=== PATIENT | female | born 1960 | race Caucasian/White ===

== ENCOUNTER 2019-03-04 23:32 | Emergency (ER) | payer OTHER, SELFPAY ==
[2019-03-04 23:43] VITALS: BP 148/89; PULSE 66; RESP 15; TEMP 36.8; O2SAT 100; BMI 20.3
--- NOTE | 2019-03-04 23:48 | DI.RAD.S_ITS ---
PROCEDURE: XR CHEST 1V INDICATIONS: chest pain TECHNIQUE: One view of the chest was acquired. COMPARISON: [facility], CR, XR CHEST 1VW (PORTABLE), 09/04/2015, 0:32. FINDINGS: Surgical changes and devices: None. Lungs and pleura: Lungs are clear. No pleural effusions or pneumothorax. Mediastinum: Mediastinal contours appear normal. Heart size is normal. Bones and chest wall: No suspicious bony lesions. Overlying soft tissues appear unremarkable. IMPRESSION: No acute cardiopulmonary disease. Dictated by: Saba Escobedo M.D. on 03/05/2019 at 9:10 Approved by: Saba Escobedo M.D. on 03/05/2019 at 9:11
[2019-03-05] VITALS: BP 118/82; PULSE 69; RESP 21; O2SAT 100
--- NOTE | 2019-03-05 00:04 | ED.CHESTPAIN ---
HPI - Chest Pain General Chief Complaint: Chest Pain Stated Complaint: states chest, back and abdominal pain Time Seen by Provider: 03/05/19 00:04 Source: patient Mode of arrival: Ambulatory Limitations: no limitations History of Present Illness HPI narrative: This is a 58-year-old female comes to the emergency department with complaint of epigastric pain that is radiating bilaterally towards the back. Patient states it started when she had about 2 bites of food and then suddenly started to not feel well. The episodes sort of resolved improved and then at dinner about 8:00 p.m. she tried again and symptoms returned and were progressively worse over about 3 hours. Patient states that she felt sort of chilled and fevers intermittently. Her abdomen has felt sort and distended. She was nauseated she did not vomit but states she has had a gastric bypass so she typically does not vomit. She did have a bowel movement this morning it was hard she states she is chronically constipated. She does feel little bit more constipated. She did try passing gas without success of improvement of her symptoms. she was able to pass gas. She denies any bright red blood or melena in her stool. Denies any shortness of breath, denies any chest pain. Denies any cold cough or congestion. History significant for gastric bypass, breast reconstruction secondary to weight loss, back surgery in the L5-S1 region. She has are less chronic back issues and dyslipidemia. She did take her gabapentin, repair and a Flexeril prior to arrival and that is starting to help with her symptoms but they were still present. Denies tobacco, alcohol or illicit. Her primary care is Martin Kumar in [place]. Related Data Previous Rx's Medication Instructions Recorded ketorolac 10 mg PO Q6H PRN 5 Days #10 tab 03/05/19 Allergies Allergy/AdvReac Type Severity Reaction Status Date / Time acetaminophen [From Vicodin] Allergy Verified 03/04/19 23:43 hydrocodone [From Vicodin] Allergy Verified 03/04/19 23:43 Review of Systems Review of Systems ROS Unobtainable: All systems reviewed & are unremarkable except as noted in HPI and below PFSH Medical History (Updated 03/05/19 @ 04:36 by Darleen Pascual DO) Chronic back pain (Acute) Dyslipidemia (Acute) RLS (restless legs syndrome) (Acute) Surgical History (Updated 03/05/19 @ 00:40 by Darleen Pascual DO) H/O breast reconstruction (Acute) H/O gastric bypass (Acute) History of back surgery (Acute) Social History (Updated 03/05/19 @ 00:40 by Darleen Pascual DO) marital status: Smoking Status: Unknown if ever smoked substance use type: does not use Social History (Updated 03/05/19 @ 00:40 by Darleen Pascual DO) marital status: Smoking Status: Unknown if ever smoked substance use type: does not use Exam Narrative Exam Narrative: GENERAL: Alert and oriented x three, thin female in mild distress. HEENT: Head normocephalic, atraumatic, EOMI, pupils reactive, face symmetric, moist mucous membranes NECK: Supple, full range of motion CARDIOVASCULAR: Regular rate and rhythm without murmurs, rubs or gallops. RESPIRATORY: Breath sounds equal bilaterally, no wheezes rales or rhonchi. ABDOMEN: Soft, patient has epigastric right upper and left upper quadrant tenderness. Normoactive bowel sounds all 4 quadrants. No guarding or rebound, rigidity, no mass. nondistended. no bruit or pulsatile mass. : No CVA tenderness BACK: No cervical, thoracic or lumbar vertebral point tenderness. Patient has normal range of motion. Patient's gait is not tested. EXTREMITIES: Normal range of motion, no clubbing or edema. Neurovascularly intact NEUROLOGICAL: Cranial nerves II through XII grossly intact. Moving all extremities SKIN: Warm, dry, no petechiae, no rashes or lesions. Initial Vital Signs Initial Vital Signs: Vital Signs Temperature 98.3 F 03/04/19 23:43 Pulse Rate 66 03/04/19 23:43 Respiratory Rate 15 03/04/19 23:43 Blood Pressure 148/89 H 03/04/19 23:43 Pulse Oximetry 100 03/04/19 23:43 Course Orders Ordered: ED Orders 03/04/19 23:42 EKG-12 Lead Routine 03/04/19 23:48 XR chest 1V Stat Complete Blood Count AUTO DIFF Stat Comprehensive Metabolic Panel Stat Lipase Stat Partial Thromboplastin Time Stat Prothrombin Time INR Stat Troponin & CK Cardiac Panel Stat EKG-12 Lead Stat 03/05/19 00:36 US abdomen complete Stat 03/05/19 02:02 EKG-12 Lead Stat 03/05/19 02:04 CT abdomen pelvis w con Stat 03/05/19 02:11 Troponin & CK Cardiac Panel Stat Discontinued Medications Ketorolac Tromethamine (Toradol) 30 mg IV NOW ONE Stop: 03/05/19 00:37 Last Admin: 03/05/19 00:41 Dose: 30 mg Documented by: DWAYNE Vital Signs Vital signs: Vital Signs - 8 hr 03/04/19 23:43 03/05/19 00:00 03/05/19 01:00 Temperature 98.3 F Pulse Rate 66 69 76 Respiratory Rate 15 21 16 Blood Pressure 148/89 H Blood Pressure [Left Arm] 118/82 118/82 Pulse Oximetry 100 100 100 03/05/19 02:30 03/05/19 03:00 Temperature Pulse Rate 76 68 Respiratory Rate 18 18 Blood Pressure Blood Pressure [Left Arm] 127/79 117/76 Pulse Oximetry 98 100 MDM - Chest Pain Lab Data Attestation: I reviewed the patient's lab results. Result diagrams: 03/05/19 00:03 03/05/19 00:03 Labs: Lab Results 03/05/19 03/05/19 03/05/19 Range/Units 00:03 00:03 00:03 WBC 5.0 (4.5-11.0) X10^3/uL RBC 4.72 (4.0-5.2) X10^6/uL Hgb 13.9 (12.0-16.0) g/dL Hct 41.9 (36-46) % MCV 88.9 (80-100) fL MCH 29.5 (26-34) PG MCHC 33.2 (30-36) % RDW 13.3 (11.6-14.8) % Plt Count 145 L (150-400) X10^3/uL Neut % (Auto) 62.0 (50-75) % Lymph % (Auto) 26.9 (25-40) % [place] % (Auto) 6.5 (3-14) % Eos % (Auto) 3.5 (2-4) % Baso % (Auto) 1.1 (0-2) % Neut # (Auto) 3100 (0737-6937) /uL Lymph # (Auto) 1300 (6753-2803) /uL [place] # (Auto) 300 (0-900) /uL Eos # (Auto) 200 (0-450) /uL Baso # (Auto) 100 (0-100) /uL PT 10.5 (10.1-12.7) SECONDS INR 0.9 (0.9-1.3) APTT 32 (26.4-36.2) SECONDS Sodium 141 (137-145) mmol/L Potassium 3.9 (3.4-5.1) mmol/L Chloride 108 H (98-107) mmol/L Carbon Dioxide 25 (22-32) mmol/L BUN 18 H (7-17) mg/dL Creatinine 0.80 (0.52-1.04) mg/dL Estimated GFR > 60.0 (>60) mL/min BUN/Creatinine Ratio 22.5 H (6-22) Glucose 90 (70-100) mg/dL Calcium 9.3 (8.4-10.2) mg/dL Total Bilirubin 0.3 (0.2-1.3) mg/dL AST 43 H (14-36) IU/L ALT 37 (9-52) IU/L Alkaline Phosphatase 61 (38-126) U/L Total Creatine Kinase 245 H (30-135) U/L CK-MB (CK-2) 3.69 H (<2.37) ng/mL CK-MB (CK-2) Rel Index 1.5 (1.5-5.0) % Troponin I < 0.012 (0.01-0.034) ng/mL Total Protein 7.2 (6.3-8.2) g/dL Albumin 4.4 (3.5-5.0) g/dL Globulin 2.8 (1.7-4.1) g/dL Albumin/Globulin Ratio 1.6 (1.0-2.8) Lipase 155 (23-300) U/L 03/05/19 Range/Units 02:11 WBC (4.5-11.0) X10^3/uL RBC (4.0-5.2) X10^6/uL Hgb (12.0-16.0) g/dL Hct (36-46) % MCV (80-100) fL MCH (26-34) PG MCHC (30-36) % RDW (11.6-14.8) % Plt Count (150-400) X10^3/uL Neut % (Auto) (50-75) % Lymph % (Auto) (25-40) % [place] % (Auto) (3-14) % Eos % (Auto) (2-4) % Baso % (Auto) (0-2) % Neut # (Auto) (3968-6689) /uL Lymph # (Auto) (0621-9009) /uL [place] # (Auto) (0-900) /uL Eos # (Auto) (0-450) /uL Baso # (Auto) (0-100) /uL PT (10.1-12.7) SECONDS INR (0.9-1.3) APTT (26.4-36.2) SECONDS Sodium (137-145) mmol/L Potassium (3.4-5.1) mmol/L Chloride (98-107) mmol/L Carbon Dioxide (22-32) mmol/L BUN (7-17) mg/dL Creatinine (0.52-1.04) mg/dL Estimated GFR (>60) mL/min BUN/Creatinine Ratio (6-22) Glucose (70-100) mg/dL Calcium (8.4-10.2) mg/dL Total Bilirubin (0.2-1.3) mg/dL AST (14-36) IU/L ALT (9-52) IU/L Alkaline Phosphatase (38-126) U/L Total Creatine Kinase 213 H (30-135) U/L CK-MB (CK-2) 3.22 H (<2.37) ng/mL CK-MB (CK-2) Rel Index 1.5 (1.5-5.0) % Troponin I < 0.012 (0.01-0.034) ng/mL Total Protein (6.3-8.2) g/dL Albumin (3.5-5.0) g/dL Globulin (1.7-4.1) g/dL Albumin/Globulin Ratio (1.0-2.8) Lipase (23-300) U/L Imaging Data Chest x-ray: My impression: nap CT scan - abdomen: Radiologist's impression: Patient has some dependent bilateral lobe atelectasis. Gallbladder is distended. Postsurgical findings of gastric bypass. Study was not performed according the pancreatic mass protocol however there is no enhancing pancreatic mass visualized. Ducts appear normal and measures within limits. No peripancreatic inflammation she is testing acute pancreatitis. Spleen, adrenal glands and kidneys are normal with no mesenteric or read pain air medial lymphadenopathy. No abdominal ascites. There is no suspicious lytic or sclerotic osseous lesions notified. Multilevel spondylitic lesions of the lumbar spine. Colon and small bowel are normal, pending has not seen bladder is unremarkable uterus appears leiomyomatous with postsurgical findings of left inguinal hernia repair. ECG Data Prior ECG tracings: not available for review Interpretation: Sinus rhythm rate of 60 P are 171 QRS of 101 QTC of 435. Nonspecific ST change. Patient does appear to have some artifact in leads. Discharge Plan Departure Patient Disposition: Home Clinical Impression: Abdominal pain Discharge Date/Time: 03/05/19 04:42 Activity Restrictions/Additional Instructions: Follow-up with primary care, it is recommended that she have imaging with pancreatic mass protocol to evaluate if there is a mass present or not finally. Recommendation would be for MRI. Your physician can help set this up. Continue medications as prescribed. You may take prescribed medication for pain as needed. Return to the emergency department for fevers greater 100.4 F, new or worsening abdominal pain, chest pain, shortness of breath, passing out, persistent vomiting, concerns for dehydration, black or bloody stools or other new or concerning symptoms. Prescriptions: New ketorolac 10 mg tablet 10 mg PO Q6H PRN (Reason: pain) 5 Days Qty: 10 RF: 0 Referrals: Martin Vann MD [Primary Care Provider] -
[2019-03-05 00:33] LABS: Add Manual Diff / Slide Review NO; Basophils Absolute Auto 100 /uL (0-100); Basophils Percent Auto 1.1 % (0-2); Eosinophils Absolute Auto 200 /uL (0-450); Eosinophils Percent Auto 3.5 % (2-4); Hematocrit 41.9 % (36-46); Hemoglobin 13.9 g/dL (12.0-16.0); Lymphocytes Absolute Auto 1300 /uL (1100-4500); Lymphocytes Percent Auto 26.9 % (25-40); Mean Corpuscular HGB Conc 33.2 % (30-36); Mean Corpuscular Hemoglobin 29.5 PG (26-34); Mean Corpuscular Volume 88.9 fL (80-100); Monocytes Absolute Auto 300 /uL (0-900); Monocytes Percent Auto 6.5 % (3-14); Neutrophils Absolute Auto 3100 /uL (1500-7000); Platelet Count 145 X10^3/uL (150-400); Red Blood Cell Count 4.72 X10^6/uL (4.0-5.2); Red Cell Distribution Width 13.3 % (11.6-14.8)
[2019-03-05 00:34] LABS: INR 0.9 (0.9-1.3); Prothrombin Time 10.5 SECONDS (10.1-12.7)
--- NOTE | 2019-03-05 00:36 | DI.US.S_ITS ---
PROCEDURE: US ABDOMEN COMPLETE INDICATIONS: EPIGASTRIC PAIN TO BACK TECHNIQUE: Real-time scanning was performed of the abdominal and retroperitoneal organs, with image documentation. COMPARISON: None. FINDINGS: Liver: Liver is normal in size and homogeneous in echotexture. Gallbladder: No gallstones. No gallbladder wall thickening, pericholecystic fluid or sonographic Barakat's sign. Biliary ducts: Intrahepatic bile ducts are non-dilated. Extrahepatic bile duct caliber measures 10 mm. Normal is 6-7 mm or less in diameter, or 10 mm or less post-cholecystectomy. Pancreas: There is an ill-defined hypoechoic area in the pancreatic head measuring 4.5 x 1.7 x 3.4 cm. Pancreatic duct is non-dilated measuring 2 mm. Spleen: Spleen is normal in size and homogeneous in echotexture. Kidneys: Kidneys are normal in size and echotexture. Right kidney measures 10.0 cm long; left kidney measures 10.9 cm long. No hydronephrosis or nephrolithiasis. No solid masses. Aorta: Visualized aorta is normal in caliber at less than 3 cm. Iliacs: Proximal common iliac arteries are normal in caliber at less than 2.5 cm. IVC: Intrahepatic inferior vena cava is patent. Miscellaneous: No free abdominal fluid. IMPRESSION: 1. An ill-defined hypoechoic area in the pancreatic head measuring 4.5 x 1.7 x 3.4 cm. Cannot rule out a mass in the pancreatic head. 2. Prominent common bile duct measuring 10 mm in diameter. There is no intrahepatic biliary dilation. Please correlate with serum bilirubin. Dictated by: Saba Escobedo M.D. on 03/05/2019 at 9:24 Approved by: Saba Escobedo M.D. on 03/05/2019 at 9:31
[2019-03-05 00:37] LABS: PTT Partial Thromboplastin Tim 32 SECONDS (26.4-36.2)
[2019-03-05 00:39] LABS: Alanine Aminotransferase 37 IU/L (9-52); Albumin 4.4 g/dL (3.5-5.0); Albumin Globulin Ratio 1.6 (1.0-2.8); Alkaline Phosphatase 61 U/L (38-126); Aspartate Aminotransferase 43 IU/L (14-36); BUN Creatinine Ratio 22.5 (6-22); Bilirubin Total 0.3 mg/dL (0.2-1.3); Blood Urea Nitrogen 18 mg/dL (7-17); Calcium 9.3 mg/dL (8.4-10.2); Carbon Dioxide 25 mmol/L (22-32); Chloride 108 mmol/L (98-107); Creatine Kinase 245 U/L (30-135); Estimated Glomerular Filt Rate > 60.0 mL/min (>60); Globulin 2.8 g/dL (1.7-4.1); Glucose 90 mg/dL (70-100); HEMOLYSIS < 15 (0-50); Lipase 155 U/L (23-300); Potassium 3.9 mmol/L (3.4-5.1); Sodium 141 mmol/L (137-145); Total Protein 7.2 g/dL (6.3-8.2)
[2019-03-05] MEDS: KETOROLAC 60 MG/2 ML VIAL 30 MG IV (00:41)
[2019-03-05 00:50] LABS: Troponin I < 0.012 ng/mL (0.01-0.034)
[2019-03-05 00:54] LABS: CKMB % Relative Index 1.5 % (1.5-5.0); Creatine Kinase MB 3.69 ng/mL (<2.37)
[2019-03-05 01:00] VITALS: BP 118/82; PULSE 76; RESP 16; O2SAT 100
--- NOTE | 2019-03-05 02:04 | DI.CT.S_ITS ---
PROCEDURE: CT ABDOMEN PELVIS W CON INDICATIONS: mass in pancreatic head. epigastric pain TECHNIQUE: After the administration of intravenous contrast, 5 mm thick sections acquired from the diaphragm to the symphysis. 5 mm coronal and sagittal reformats were acquired. For radiation dose reduction, the following was used: automated exposure control, adjustment of mA and/or kV according to patient size. COMPARISON: [facility], , US ABDOMEN COMPLETE, 03/05/2019, 0:56. FINDINGS: Image quality: Excellent. ABDOMEN: Lung bases: Lung bases are clear. Heart size is normal. Solid organs: Liver is normal in size and enhancement. Gallbladder is normal. Biliary system is non dilated. Pancreas enhances normally. Spleen is normal in size and enhancement. No adrenal nodules. Kidneys demonstrate normal size and enhancement, without hydronephrosis. Peritoneum and bowel: Postsurgical changes in the stomach. There is moderate amount of stool in colon. Bowel loops demonstrate normal wall thickness and caliber. Appendix is not identified. No free fluid or air. Nodes and vessels: No retroperitoneal or mesenteric adenopathy by size criteria. Aorta and inferior vena cava are normal in size. Miscellaneous: No ventral hernias. PELVIS: Genitourinary: Bladder wall thickness is normal. Myomatous uterus. Ovaries are not well-seen. No pathological free fluid. Miscellaneous: No inguinal hernias or adenopathy. Bones: No suspicious bony lesions. No vertebral body compression fractures. Degenerative changes in lumbar spine. IMPRESSION: 1. No pancreatic mass is identified. The exam is not performed using pancreatic protocol. If clinical suspicion for pancreatic mass persists, CT of pancreatic protocol could be obtained. 2. Moderate amount of stool in colon. 3. Distended urinary bladder. 4. Myomatous uterus. No significant discrepancy with the night club manager radiology preliminary report. Dictated by: Saba Escobedo M.D. on 03/05/2019 at 8:53 Approved by: Saba Escobedo M.D. on 03/05/2019 at 9:03
[2019-03-05 02:30] VITALS: BP 127/79; PULSE 76; RESP 18; O2SAT 98
[2019-03-05 02:30] LABS: Creatine Kinase 213 U/L (30-135)
[2019-03-05 02:42] LABS: Troponin I < 0.012 ng/mL (0.01-0.034)
[2019-03-05 02:45] LABS: CKMB % Relative Index 1.5 % (1.5-5.0); Creatine Kinase MB 3.22 ng/mL (<2.37)
[2019-03-05 03:00] VITALS: BP 117/76; PULSE 68; RESP 18; O2SAT 100
== END 2019-03-05 04:42 | disposition home or self-care (01) ==
PROVIDERS: Emergency Provider Emergency Medicine; PCP Family Medicine
DX: R10.9 Unspecified abdominal pain (principal); Z98.84 Bariatric surgery status
CPT/HCPCS: 36415; 71045; 74177; 76700; 80053; 82550; 82553; 83690; 84484; 85025; 85610; 85730; 93005; 96374; 99283; 99285; J1885; Q9967

== ENCOUNTER 2019-05-04 07:53 | Outpatient (CLI) | payer OTHER, SELFPAY ==
[2019-05-04] VITALS (7 sets, daily range): BP systolic 110–138; BP diastolic 71–94; PULSE 68–82; RESP 14–16; TEMP 36.2; O2SAT 100
--- NOTE | 2019-05-04 07:55 | DI.RAD.S_ITS ---
PROCEDURE: PAIN L/S TRANSFORAMINAL INJECT INDICATIONS: SPONDYLOSIS FINDINGS: Fluoroscopic spot filming was performed to verify placement of spinal needles at the L4-L5 level(s), as labeled on the films. Appropriate location(s) of the needle tip(s) was confirmed by injection of iodinated contrast. IMPRESSION: Fluoroscopy for pain management. Dictated by: Saba Escobedo M.D. on 05/04/2019 at 11:54 Approved by: Saba Escobedo M.D. on 05/04/2019 at 11:55
--- NOTE | 2019-05-04 09:19 | P.PCN_ITS ---
Procedures Date/Time Date of procedure: 05/04/19 Time of procedure: 09:40 General Procedure description: PREOP DIAGNOSIS 1. FORMAINAL STENOSIS WITH LE SYMPTOMS POST OP DIAGNOSIS 1. FORMAINAL STENOSIS WITH LE SYMPTOMS PROCEDURES 1. FLUOROSCOPICALLY GUIDED CONTRAST CONTROLLED TRANSFORAMINAL EPIDURAL STEROID INJECTION - LEFT L4/5 PHYSICIAN: Alejandro Gan DO INDICATIONS: Machelle is referred by for treatment of Foraminal Stenosis with Left LE Symptoms FINDINGS Foraminal Nerve Root Compression secondary to disc disease and facet hypertrophy DESCRIPTION OF PROCEDURE: Following review of allergy and review of potential side effects and complications, including, but not necessarily limited to, infection, allergic reaction, local tissue breakdown, stroke, temporary or permanent nerve injury, paralysis, and possible , the patient indicated that the patient understood and agreed to proceed. An informed consent document was signed by the patient, witnessed by a nurse, and placed in the patient's chart. Additionally, other treatment options including medications, modalities, and physical therapy were reviewed with the patient. After review of previous anaesthesic history and IV conscious sedation the patie nt was deemed safe to proceed with todays procedure with IV conscious sedation as ASA class II designation. Safety time-out was performed to confirm patient ID, procedure to be performed and site of procedure. IV sedation was accomplished with a combination of 2mg of Versed and 50mcg of Fentanyl administered by the RN after DO order, titrated to patient comfort during the course of the procedure while the patient remained responsive to all verbal commands In the prone position following sterile prep and drape of the lumbar region, the left L4/5 posterior neuroforamen was identified fluoroscopically. The skin was anesthetized via a 25-gauge 1.5-inch needle with 1% lidocaine solution. At this point, a 25-gauge 3.5-inch spinal needle was atraumatically introduced and advanced under fluoroscopic guidance through the posterior left L4/5 neuroforamen to approximately the anterior aspect of the canal. Depth was confirmed on lateral view. Following negative aspiration, injection of appr oximately 1.5 cc of Isovue 200 under live fluoroscopy in the AP view confirmed excellent flow along the nerve root, into the epidural space without vascular or intrathecal uptake observed Radiological data, including multiple fluoroscopic views of the lumbosacral spine, reveal a spinal needle at the left L4/5 posterior neuroforamen. Subsequent views show flow of contrast material flowing superiorly and inferiorly along the nerve root confirming epidural flow. Subsequently, a test dose of 1.5 cc of 1% lidocaine solution was administered and patient was observed for two minutes for signs or symptoms of complications, including abdominal pain, shortness of breath, bilateral upper or lower extremity weakness, nausea and vomiting, prior to steroid injection. At this point, a total of 3cc or 20mg of dexamethasone and 6mg of betamethasone was injected without incident. The procedure tolerated the procedure well without signs or symptoms of complications prior to transfer to the recovery area continued monitoring without incident. The patient was then transferred to the recovery area where they were observed for an appropriate time after the injection. The patient reported a VAS score of 7 prior to the procedure and a post- procedure VAS of 0. Total Fluoroscopy Time: 20.9 seconds Total Conscious Sedation Time: 24min POST OP INSTRUCTIONS The patient was provided a Pain Log to continue to record their response to the target-specific procedure prior to follow-up visit with their referring physician. Additionally, specific post-injection care instructions and a contact number to our office were provided if concerns arise regarding possible complications associated with the procedure are suspected. Alejandro Gan, Complications: none
[2019-05-04] MEDS: fentaNYL 100 MCG/2 ML INJ 50 MCG IV (09:25)
[2019-05-04] MEDS: MIDAZOLAM 5 MG/5 ML VIAL IV (09:25)
[2019-05-04] MEDS: BUPIVACAINE 0.25% (PF) VIAL 2 ML INJ (09:29)
[2019-05-04] MEDS: BETAMETHASONE 30 MG/5 ML MDV 6 MG INJ (09:30)
[2019-05-04] MEDS: DEXAMETHASONE 10 MG/ML VIAL 20 MG INJ (09:30)
[2019-05-04] MEDS: IOPAMIDOL 15 ML VIAL 3 ML INJ (09:30)
--- NOTE | 2019-05-04 09:45 | PC.NURSE ---
Post procedure note: Patient medicated per providers orders. Patient tolerated procedure well. VSS, O2 Sat WNL on 2L/TELEPHONE TECHNICIAN. Able to sit up and transfer to w/c independently. Handoff report given to Abimbola Albert at 0938. Pain leve 4-10/02. Denied any unusual numbness or tingling to lower extremities.
--- NOTE | 2019-05-04 09:46 | PC.NURSE ---
ACCEPTED CARE OF PT IN POST PROC AREA IN STABLE CONDITION. VSS, A&0X4, STEADY ON FEET.
== END 2019-05-04 10:07 | disposition home or self-care (01) ==
LOC: RAD 07:54
PROVIDERS: PCP Family Medicine; Visit Provider Physical Medicine & Rehabilitation
DX: M48.061 Spinal stenosis, lumbar region without neurogenic claudication (principal); M51.16 Intervertebral disc disorders with radiculopathy, lumbar region
CPT/HCPCS: 64483; 99152; J0702; J1100; J2250; J3010

== ENCOUNTER → 2019-06-01 11:28 | Outpatient (CLI) | payer OTHER, SELFPAY ==
--- NOTE | 2019-06-01 11:32 | DI.RAD.S_ITS ---
PROCEDURE: XR HIP W PEL IF DONE LT MIN 4V INDICATIONS: left hip pain TECHNIQUE: AP pelvis with lateral view(s) of the both hip(s). COMPARISON: [facility], CR, XR LUMBAR SPINE 2 OR 3 VIEWS, 10/26/2018, 9:56. FINDINGS: Bones: No fractures or dislocations. Pelvic ring appears intact. No suspicious bony lesions. Mild symmetric hip and sacral iliac joint degeneration bilaterally. Soft tissues: The visualized bowel gas pattern is normal. No suspicious soft tissue calcifications. IMPRESSION: No fracture or dislocation. Mild degenerative joint disease enhance and secrete joints. Dictated by: Saba Escobedo M.D. on 06/01/2019 at 17:45 Approved by: Saba Escobedo M.D. on 06/01/2019 at 17:46
== END ==
PROVIDERS: PCP Family Medicine; Visit Provider Registered Nurse
DX: M25.552 Pain in left hip (principal); M24.852 Other specific joint derangements of left hip, not elsewhere classified; M16.0 Bilateral primary osteoarthritis of hip; M47.898 Other spondylosis, sacral and sacrococcygeal region
CPT/HCPCS: 73522